=== PATIENT | male | born 1990 | race Caucasian/White ===

== ENCOUNTER → 2022-09-01 | Outpatient (CLI) | payer OTHER ==
--- NOTE | 2022-09-01 09:16 | CT ---
EXAMINATION TYPE: CT foot LT wo con DATE OF EXAM: 09/01/2022 COMPARISON: None HISTORY: 32-year-old male M79.672, left foot pain. TECHNIQUE: Contiguous axial scanning of the left foot without IV contrast. Coronal and sagittal recon structions performed. 3-D reconstructions generated on a dedicated workstation. CT DLP: 147.3 mGycm Automated exposure control for dose reduction was used. FINDINGS: Comminuted fractures involving the base of this second, third, and fourth metatarsals with fracture l olvin extending into the TMT and intermetatarsal joints. There is a 6 mm displaced bone fragment inter posed just beyond the second-third intermetatarsal joint. Fractures involve the second metatarsal ins ertion of the Lisfranc ligament. Tiny chip fracture along the medial and inferior aspects of the first metatarsal base. Small fracture fragments along the lateral distal margins of the medial, middle, and lateral cuneifor ms. There is some dorsal displacement up to 3 mm at the second and third TMT joints. IMPRESSION: 1. COMMINUTED FRACTURES INVOLVING THE SECOND, THIRD, AND FOURTH METATARSAL BASES ALONG THE LISFRANC L IGAMENT COMPLEX. 3 MM OF DORSAL DISPLACEMENT AT THE SECOND AND THIRD TMT JOINTS. 2. ADDITIONAL TINY AVULSION FRACTURES ARE PRESENT ALONG THE MEDIAL AND INFERIOR ASPECTS OF THE FIRST METATARSAL BASE WELL THE LATERAL DISTAL MARGINS OF ALL 3 CUNEIFORM BONES, AGAIN, LOCATED ALONG THE LISFRANC LIGAMENT COMPLEX.
== END | disposition home or self-care (01) ==
LOC: RADCTMAIN 07:01
PROVIDERS: ATTEND Orthopaedic Surgery
DX: S92.312A Displaced fracture of first metatarsal bone, left foot, initial encounter for closed fracture (principal); S92.322A Displaced fracture of second metatarsal bone, left foot, initial encounter for closed fracture; S92.333A Displaced fracture of third metatarsal bone, unspecified foot, initial encounter for closed fracture; S92.342A Displaced fracture of fourth metatarsal bone, left foot, initial encounter for closed fracture

== ENCOUNTER 2022-09-13 11:11 | Day surgery (SDC) | payer OTHER ==
[~2022-09-13 11:11] MED LIST: DEXAMETHASONE SOD PHOSPHATE 4 MG/ML 1 ML VIAL IV ONE; LACTATED RINGERS 1,000 ML IV SCH; LIDOCAINE 1% (10MG/ML) FOR IV START INTRADERMA PRN; MIDAZOLAM 2 MG/2 ML VIAL IV PRN; ONDANSETRON 4 MG/2 ML VIAL IVP ONE
[2022-09-13] MEDS ORDERED: MIDAZOLAM 2 MG/2 ML VIAL IVP ONE (12:52)
[2022-09-13] MEDS ORDERED: fentaNYL (PF) 50 MCG/1 ML VIAL IVP ONE (12:52)
[2022-09-13] MEDS ORDERED: MIDAZOLAM 2 MG/2 ML VIAL ONE (13:37)
[2022-09-13] MEDS ORDERED: SODIUM CHLORIDE 0.9% (PF) 10 ML VIAL ONE (13:37)
[2022-09-13] MEDS ORDERED: LIDOCAINE 2% INJ 20 MG/ML (2 ML VIAL) ONE (13:37)
[2022-09-13] MEDS ORDERED: PROPOFOL 10 MG/ML 20 ML VIAL IV ONE (13:37)
[2022-09-13] MEDS ORDERED: ROPIVACAINE 5 MG/ML 30 ML VIAL ONE (13:37)
[2022-09-13] MEDS ORDERED: fentaNYL (PF) 50 MCG/ML 2 ML AMP ONE (13:37)
[2022-09-13] MEDS ORDERED: KETOROLAC 15 MG/ML 1 ML VIAL ONE (13:37)
--- NOTE | 2022-09-13 13:54 | P.ANPRN ---
Procedure Note - Anesthesia - Nerve Block Performed Left Adductor Canal Time Out Performed: Yes (12:51) Date of Procedure: 09/13/22 Procedure Start Time: :51 Procedure Stop Time: 12:56 Location of Patient: PreOp Indication: Acute Post-Operative Pain, Requested by Surgeon (Dr Brower) Sedation Type: Sedate with meaningful contact maintained Preparation: Sterile Prep Position: Supine Catheter: None Needle Types: Pajunk Needle Gauge: 21 Ultrasound used to visualize needle placement: Yes Ultrasound used to observe medication spread: Yes Injectate: 0.5% Ropivacaine (see comment for volume) (15cc) Blood Aspirated: No Pain Paresthesia on Injection Noted: No Resistance on Injection: Normal Image Stored and Saved: Yes Events: Uneventful and Well Tolerated
--- NOTE | 2022-09-13 13:56 | P.ANPRN ---
Procedure Note - Anesthesia - Nerve Block Performed Left Popliteal Time Out Performed: Yes Date of Procedure: 09/13/22 Procedure Start Time: 12:57 Procedure Stop Time: 13:02 Location of Patient: PreOp Indication: Acute Post-Operative Pain, Requested by Surgeon (Dr Brower) Sedation Type: Sedate with meaningful contact maintained Preparation: Sterile Prep Position: Right Lateral Catheter: None Needle Types: Pajunk Needle Gauge: 21 Ultrasound used to visualize needle placement: Yes Ultrasound used to observe medication spread: Yes Injectate: 0.5% Ropivacaine (see comment for volume) (15cc +5cc PF Normal saline) Blood Aspirated: No Pain Paresthesia on Injection Noted: No Resistance on Injection: Normal Image Stored and Saved: Yes Events: Uneventful and Well Tolerated
[2022-09-13] MEDS ORDERED: LACTATED RINGERS 1,000 ML IV ONE (15:14)
[2022-09-13] MEDS: HYDROmorphone 0.5 MG/0.5 ML SYRINGE IVP PRN ×2 (15:45→16:04)
[2022-09-13 15:47] VITALS: TEMP 97.8
--- NOTE | 2022-09-13 15:55 | P.OP ---
Date of Procedure: 09/13/22 Preoperative Diagnosis: Tarsometatarsal joint fracture/dislocation left foot Postoperative Diagnosis: Same Procedure(s) Performed: 1. Arthrodesis of the second and third tarsometatarsal joints left foot 2. Open reduction with internal fixation Lisfranc dislocation left foot Implants: Novastep 5 hole compression plates x 2 with associated 3.0mm locking and non- locking screws 5mL ActiV graft 4.2 mm cannulated screw Anesthesia: HAYDER Surgeon: Terrance Brower Estimated Blood Loss (ml): 5 Pathology: none sent Condition: stable Disposition: PACU Description of Procedure: Prior to the patient being brought to the operative room, anesthesia administered a nerve block on the left lower extremity. The patient was then brought into the operating room and placed on table in the supine position. Timeout was taken to confirm correct patient identifiers, correct laterality of surgery, and correct procedure. Once the staff in the room were in agreement with the timeout, the patient was induced and placed under general anesthesia. A well-padded tourniquet was placed on the left calf and a bump underneath the left hip to internally rotate the left leg. The left leg was then prepped and draped usual manner. The leg was exsanguinated and the tourniquet inflated to 250 mmHg. Utilizing live fluoroscopy and metallic marker was used to confirm the position of the second and third tarsometatarsal joints. Once confirmed a curvilinear incision was made directly over the second and third tarsometatarsal joints. The incision was deepened under the subcutaneous tissue careful to identify, avoid, and retract any neurovascular structures and cauterize any bleeding vessels. Blunt dissection was continued down to the deep fascia. Extensor tendons were retracted laterally to expose the tarsometatarsal joints. Under fluoroscopic visualization scalpels were used to resect the joint capsules of the second third tarsometatarsal joints while leaving the periosteum intact over the rest of the osseous structures. Soft tissue was freed and there were fracture fragments in the second and third tarsometatarsal joint several removed. Utilizing a sidecutting rotary angelito the rest of the bony fragments, articular cartilage, and subchondral bone were removed under bleeding medullary bone. Once the joint preparation was complete, a 2 mm drill bit was used to fenestrate the conjoining surfaces at the arthrodesis site. Then the joints were reduced and planed as needed so that there was good flat bony contact. ActiV bone graft was then placed between the arthrodesis segments. Guidewires for the compression device were placed in the third metatarsal base as well as at the intercuneiform. The device was placed over the wires and then the arthrodesis site compressed. A 5 hole compression and locking plate was then positioned over the second tarsometatarsal joint. Position was adjusted under fluoroscopic visualization until the alignment was appropriate. Temporary fixation was utilized and then checked under fluoroscopy. 2 locking screws were placed through the plate and that the intermediate cuneiform. Then locking screws placed in the compression slot distally of the plate. Then another locking screw was placed onto the distal portion of the plate. Final fluoroscopic imaging showed compression the arthrodesis site and proper placement of the hardware. The compression device and pins were then removed and a 5 hole straight plate was positioned contoured across the second tarsometatarsal joint. It was temporarily fixated with threaded olive wires under direct fluoroscopic visualization for proper alignment. 2 locking screws were placed into the lateral cuneiform first however the compression slot was over the previous fracture site therefore the last screw placed was a distal locking screw. As area was already compressed with the device, further compression the plate wasn't needed. Then the decision was made due to the instability near the first ray for the placement of the Lisfranc screw. The guidewires placed over the medial cuneiform and angled towards the base of the second metatarsal with slight dorsal angulation. The wire was advanced into the base of second metatarsal and was visible at the surgical incision. Countersunk and overdrill was performed and then a partially threaded screw was placed over the wire and advanced until there was compression between the second metatarsal base and medial cuneiform. The wounds were irrigated thoroughly with antibiotic saline. Deep closure was done with 3-0 Vicryl. Subcu closure done for Monocryl. Skin closure done with keya. A dry sterile compressive dressings applied to left foot. The tourniquet was released capillary refill return to all digits on left foot. Patient's placed a well-padded, well molded plaster posterior mold/sugar tong splint. Anesthesia was reversed and the patient was taken recovery with vital signs stable
[2022-09-13 17:24] VITALS: BP 115/72; PULSE 79; RESP 18
== END 2022-09-13 17:25 | disposition home or self-care (01) ==
LOC: OR 11:11
PROVIDERS: ATTEND Podiatrist
DX: S93.326A Dislocation of tarsometatarsal joint of unspecified foot, initial encounter (principal); G89.18 Other acute postprocedural pain; Z79.899 Other long term (current) drug therapy
CPT/HCPCS: 64447; 64445; 76942; 28730; 28485; C1713; J2250; J1100; J0690; J2405; J3010 ×2; J2795; J1885; J2704; J1170; J2001

== ENCOUNTER → 2024-05-16 | Outpatient (CLI) | payer OTHER | END | disposition home or self-care (01) | LOC: LABPRL 12:00 | PROVIDERS: ATTEND Nurse Practitioner Family | DX: E55.9 Vitamin D deficiency, unspecified (principal) | CPT/HCPCS: 82306 ==